=== PATIENT | female | born 1980 ===

== ENCOUNTER 2017-05-03 06:24 | Day surgery (SDC) | payer OTHER ==
[~2017-05-03] VITALS: Ht 160 cm; Wt 88.8 kg
[~2017-05-03 06:24] MED LIST: EXCEDRIN MIGRAINE PO; LUPRON DEPOT3.75 MG IM; TRAMADOL HCL50 MG PO; VICODIN EQUIVAL1 TAB PO
[2017-05-03] MEDS ORDERED: ZOFRAN4 MG PO (09:41)
[2017-05-03] MEDS ORDERED: HYDROMORPHONE HC2 MG PO (09:41)
--- NOTE | 2017-05-03 09:42 | Provider's Discharge Care Plan ---
Problem, Goal, Plan Problem List 1. Plantar fascial fibromatosis Goals: Improve function Instructions: Increase activity level
--- NOTE | 2017-05-03 09:42 | Provider's Discharge Care Plan ---
Problem, Goal, Plan Problem List 1. Plantar fascial fibromatosis Goals: Improve function Instructions: Increase activity level
--- NOTE | 2017-05-03 10:52 | DIAGNOSTIC IMAGING REPORT ---
PROCEDURE: XR FOOT 3 VIEWS - RIGHT INDICATION: POST-OP- IN PACU TECHNIQUE: Three views. COMPARISON: None. FINDINGS: Status post bunionectomy. Two screws are in the first metatarsal. IMPRESSION: 1. Anatomic alignment post bunionectomy.
== END 2017-05-03 14:26 | disposition home or self-care (01) ==
LOC: OR SRH 06:24 → SCU SRH 06:27 → OR SRH 07:30
PROVIDERS: Podiatrist
PROC: 0J8Q3ZZ Division of Right Foot Subcutaneous Tissue and Fascia, Percutaneous Approach (ICD-10-PCS; principal; 2017-05-03 07:30)
PROC: 0QSN04Z Reposition Right Metatarsal with Internal Fixation Device, Open Approach (ICD-10-PCS; principal; 2017-05-03 07:30)
PROC: 0QBN0ZZ Excision of Right Metatarsal, Open Approach (ICD-10-PCS; principal; 2017-05-03 07:30)
PROC: 0QBL0ZZ Excision of Right Tarsal, Open Approach (ICD-10-PCS; principal; 2017-05-03 07:30)
PROC: 01BG0ZZ Excision of Tibial Nerve, Open Approach (ICD-10-PCS; principal; 2017-05-03 07:30)
DX: M20.11 Hallux valgus (acquired), right foot (principal); G57.81 Other specified mononeuropathies of right lower limb; M21.621 Bunionette of right foot; M77.31 Calcaneal spur, right foot